=== PATIENT | female | born 2000 | race Native Hawaiian/Other Pacific Islander ===

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

== ENCOUNTER 2019-02-24 07:21 | Day surgery (SDC) | payer MEDICAID ==
[2019-02-24] MEDS ORDERED: ceFAZolin 1 gm in NS 1 GM/100 ML BAG IVPB ONE (10:51)
[2019-02-24] MEDS ORDERED: Lidocaine Hydrochloride 10 ML INJ ONE (10:51)
[2019-02-24] MEDS ORDERED: Bupivacaine HCl 0.25% PF (10 ml) Inj ONE ×2 (10:52→12:44)
[2019-02-24] MEDS ORDERED: Bacitracin Ointment 30 GM TUBE ONE (10:52)
[2019-02-24] MEDS ORDERED: Propofol 10 mg/ml Inj (20 ML) ONE (11:38)
[2019-02-24] MEDS ORDERED: Midazolam 2 MG/2 ML VIAL ONE (11:38)
[2019-02-24] MEDS ORDERED: Naloxone 0.4 mg/ml Inj (Adult) ONE (11:52)
[2019-02-24] MEDS ORDERED: Bacitracin 500 Units/gm Oint Foilpak UD ONE (12:00)
[2019-02-24] MEDS ORDERED: Silver Sulfadiazine 1% Cream (20 gm) ONE (12:35)
--- NOTE | 2019-02-24 12:55 | PCM.SURG1 ---
Surgeon's Initial Post Op Note - Surgeon's Notes Surgeon: Dr. Ramirez Manager Privacy: Elizabeth Antunez PGY-2, Joel Castillo PGY-2 Type of Anesthesia: IV Sedation, Local Anesthesia Administered By: Ascencion HDEZ/Dane BUTLER Pre-Operative Diagnosis: left foot hypertrophic scar, left foot plantar wart Operative Findings: I: 20cc 1:1 mix 1% Lidocaine plain and 0.5% Marcaine plain pre-operatively, 10 cc 0.5% Marcaine plain postoperatively. M: 4-0 Vicryl, 3-0 Nylon, 4-0 Nylon Post-Operative Diagnosis: same Operation Performed: 1) left foot excision of hypertrophic scar. 2) left foot excision of plantar wart with rotational skin flap Specimen/Specimens Removed: wart left forefoot, skin lesion left heel Estimated Blood Loss: EBL {In ML}: 10 Blood Products Given: N/A Drains Used: No Drains Post-Op Condition: Good Date of Surgery/Procedure: 02/24/19 Time of Surgery/Procedure: 12:54
--- NOTE | 2019-02-24 12:58 | PCM.OP ---
Operative Report - Operative Report Date of Surgery/Procedure: 02/24/19 Time of Surgery/Procedure: 12:15 Surgeon: Dr. Ramirez Senior Fire Protection Engineer: Elizabeth Antunez PGY-2 Anesthesia/Sedation: IV sedation with local - Ascencion HDEZ/Dane BUTLER Pre-Operative Diagnosis: 1) left foot hypertrophic scar, 2) left foot plantar wart Post-Operative Diagnosis: same Indication for Surgery: The patient is a 18 year-old female with the above diagnoses. The patient has exhausted conservative treatment at this time and now requests surgical intervention. The patient signed the consent after careful explanation of risks, benefits, complications and alternatives for surgical procedure. No guarantees were given nor implied. NPO status was confirmed prior to taking the patient to the operating room. Operative Findings: The patient was brought to the operating room and placed on the operating room table in the supine position. A well-padded pneumatic ankle tourniquet was placed to the patient's left ankle in the supramalleolar position. After induction of IV sedation, the patient received a total of 20 mL of 1:1 mixture of 0.5% Marcaine plain and 1% Lidocaine plain in a local block fashion to the surgical sites. Once local anesthesia was achieved, the left foot was then prepped and draped in usual sterile manner. An esmarch was utilized to exsanguinate the patient's left foot. The pneumatic ankle tourniquet was then inflated to 250 mm Hg and procedure began. Procedure/Operation Description: Procedure #1: left foot excision of hypertrophic scar Procedure #2: left foot excision of plantar wart with transpositional skin flap M: 4-0 Vicryl, 3-0 Nylon, 4-0 Nylon An additional 10 cc 0.5% Marcaine plain postoperatively was injected to the surgical sites. Estimated Blood Loss: 10mL Complications: None Specimen: wart left forefoot, skin lesion left heel Discharge & Condition: The patient tolerated the procedure and anesthesia well with no complications or complaints. The patient was escorted from the operating room to the recovery room with vital signs stable and neurovascular status intact to the left lower extremity. She will follow up in office with Dr. Ramirez.
[2019-02-24] MEDS ORDERED: Lactated Ringer's 1,000 ML IV SCH (13:15)
[2019-02-24 15:32] VITALS: RESP 18; TEMP 97.8
[2019-02-24 15:41] VITALS: BP 107/57; PULSE 65; O2SAT 100
== END 2019-02-24 14:49 | disposition home or self-care (01) ==
LOC: C.SDS 07:21
PROVIDERS: ATTEND Podiatrist Foot & Ankle Surgery
DX: D48.5 Neoplasm of uncertain behavior of skin (principal); B07.0 Plantar wart; L91.0 Hypertrophic scar
CPT/HCPCS: 14040; 88305; 97116; 97161; G8978; G8979; G8980; J0690; J2250; J2310; J2704; J3010